=== PATIENT | male | born 2000 | race African-American/Black ===

== ENCOUNTER 2021-05-17 11:03 | Emergency (ER) | payer OTHER, SELFPAY ==
[2021-05-17 11:12] VITALS: BP 127/72; PULSE 67; RESP 12; TEMP 36.9; O2SAT 100
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
== END 2021-05-17 11:36 | disposition home or self-care (01) ==
PROVIDERS: Emergency Provider Nurse Practitioner Family
DX: R05.9 Cough, unspecified (principal)
CPT/HCPCS: 99211; G0463

== ENCOUNTER 2021-09-21 11:19 | Emergency (ER) | payer OTHER, SELFPAY ==
--- NOTE | 2021-09-21 11:31 | ED.GENADULT ---
HPI - General Adult General Chief complaint: Unspecified Stated complaint: wants work note Time Seen by Provider: 09/21/21 11:31 Source: patient Mode of arrival: ambulatory Limitations: no limitations History of Present Illness HPI narrative: Mr. Hearn is a 20-year-old male patient presenting to the clinic today requesting a work note to go back to work today He reports he was sick about 2 weeks ago with fatigue and nausea over 4 September weekend. He denies any concerns at this time. Related Data Home Medications Medication Instructions Recorded Confirmed No Home Medications 05/17/21 05/17/21 Allergies Allergy/AdvReac Type Severity Reaction Status Date / Time No Known Allergies Allergy Verified 05/17/21 11:13 Review of Systems Review of Systems: Pertinent positives per HPI. Patient denies any fever, chills, rash, headache, visual changes, dizziness, cough, runny nose, sore throat, shortness of breath, chest pain, palpitations, nausea, vomiting, diarrhea, constipation, abdominal pain, or any urinary issues. PMFSH Comments At the time of my signature, I reviewed and agree with the nursing past medical, surgical, social, and family history. There is no relevant family history pertinent to the patient complaint. Exam Narrative: General: Well-developed, well nourished, in no apparent distress Head: Normocephalic, atraumatic Eyes: Pupils equally round and reactive to light bilaterally, EOM intact, sclera and conjunctive clear, no discharge, lids normal Ears: TMs intact and clear, ear canals ceruminous, no drainage, grossly hearing normal. Nose: Nares patent, no discharge, no inflammation, no sinus tenderness. Mouth: Oropharynx without lesions or masses, good dentition, MMM. Neck: Supple, trachea midline, no enlargement of anterior or posterior cervical nodes, no thyroid masses or goiter palpable. Cardio: Regular rate and rhythm, s1 and s2 normal, no murmur appreciated. Resp: Clear to auscultation bilaterally anteriorly and posteriorly, no rhonchi, rales, wheezing or rubs Course Course Emergency Course: Portions of this record may have been created with voice recognition software. Level of Care: Express Care Visit Vital Signs Vital signs: Vital signs reviewed Medical Decision Making MDM Narrative Medical decision making narrative: At the time of visit patient is resting comfortably on the exam table. Patient reports that his fatigue and nausea have resolved and he would like to get a work note to go back to work today. Work note was given and patient was given supportive measures and discharge. Differential Diagnosis Differential Diagnosis: Viral syndrome, nausea, fatigue Discharge Plan Discharge Clinical Impression: Fatigue, Nausea Patient Disposition: Home, Self-Care Condition: Stable Instructions: Antibiotic Form, Acute Nausea and Vomiting (ED), Fatigue (ED) Additional Instructions: Fatigue and nausea has resolved per patient. Work note given to return to work today. Increase fluids and stay well-hydrated Tylenol/Motrin as needed for any pain or fever. Get at least 7 to 8 hours of sleep per night Follow-up with your PCP as needed Prescriptions: No Action No Home Medications Follow-up/Referrals: UNKNOWN,DOCTOR [Primary Care Provider] - Stand Alone Forms: Work/School Release IP Time of Disposition: 11:37 Quality NIHSS Nursing Documentation ED NIHSS nursing documentation: reviewed/agree
[2021-09-21 11:32] VITALS: BP 117/73; PULSE 55; RESP 16; TEMP 37.2
== END 2021-09-21 11:42 | disposition home or self-care (01) ==
PROVIDERS: Emergency Provider Nurse Practitioner Family
DX: R53.83 Other fatigue (principal); R11.0 Nausea
CPT/HCPCS: 99211; G0463

== ENCOUNTER 2022-01-18 13:16 | Emergency (ER) | payer OTHER, SELFPAY ==
--- NOTE | 2022-01-18 13:17 | ED.URI ---
HPI - URI/Sore Throat General Stated Complaint: sore throat, trouble breathing,will need work note Time Seen by Provider: 01/18/22 13:17 Source: patient Mode of arrival: ambulatory Limitations: no limitations History of Present Illness HPI Narrative: Antonio is a 21-year-old male patient presenting to the clinic today with complaints of sore throat and nasal congestion that began this morning. He denies any fever or chills. He denies any known sick contacts. States that he is now feeling better but is needing a work note to return to work tomorrow MD elicited complaint: sore throat and nasal congestion Related Data Home Medications Medication Instructions Recorded Confirmed No Home Medications 05/17/21 05/17/21 Allergies Allergy/AdvReac Type Severity Reaction Status Date / Time No Known Allergies Allergy Verified 01/18/22 13:25 Review of Systems Review of Systems: Pertinent positives per HPI. Patient denies any fever, chills, rash, headache, visual changes, dizziness, shortness of breath, chest pain, palpitations, nausea, vomiting, diarrhea, constipation, abdominal pain, or any urinary issues. PMFSH Comments At the time of my signature, I reviewed and agree with the nursing past medical, surgical, social, and family history. There is no relevant family history pertinent to the patient complaint. Exam Narrative: General: Well-developed, well nourished, in no apparent distress Head: Normocephalic, atraumatic Eyes: Pupils equally round and reactive to light bilaterally, EOM intact, sclera and conjunctive clear, no discharge, lids normal Ears: TMs intact and clear, ear canals clear, no drainage, grossly hearing normal. Nose: Nares patent, clear nasal discharge, mild inflammation, no sinus tenderness. Mouth: Oral pharynx without lesions or masses, good dentition, MMM. Postnasal drip Neck: Supple, trachea midline, no enlargement of anterior or posterior cervical nodes, no thyroid masses or goiter palpable. Cardio: Regular rate and rhythm, s1 and s2 normal, no murmur appreciated. Resp: Clear to auscultation bilaterally, no rhonchi, rales, wheezing or rubs Course Course Emergency Course: Portions of this record may have been created with voice recognition software. Level of Care: Express Care Visit Vital Signs Vital signs: Vital signs reviewed MDM - URI/Sore Throat MDM Narrative Medical decision making narrative: At the time of the patient is resting comfortably on the exam table. I suspect patient has an upper respiratory infection/pharyngitis. Supportive measures were discussed with the patient he voiced understanding of discharge instructions and agrees to treatment plan. Differential Diagnosis Differential diagnosis: Likely sinusitis, viral infection, influenza and pharyngitis Discharge Plan Discharge Clinical Impression: Upper respiratory infection Qualifiers: URI type: unspecified viral URI Qualified Code(s): J06.9 - Acute upper respiratory infection, unspecified Pharyngitis Qualifiers: Pharyngitis/tonsillitis etiology: unspecified etiology Qualified Code(s): J02.9 - Acute pharyngitis, unspecified Patient Disposition: Home, Self-Care Condition: Stable Instructions: Antibiotic Form, Pharyngitis (ED), Upper Respiratory Infection (ED) Additional Instructions: Increase fluids and stay well hydrated Tylenol/motrin for pain/fever Flonase and OTC antihistamines as directed Vicks vapor rub to open sinuses Sinus rinses for congestion Cepacol spray, cough drops, throat lozenges, warm tea with honey/lemon, gargle salt water to soothe throat BRAT diet for diarrhea Clear liquids x 24 hours then advance as tolerated for nausea/vomiting Go to the ED if you develop a worsening in your condition- high fever not controlled by Tylenol or Motrin, dehydration, weakness, lethargy, shortness of breath, or chest pain. Follow up with your PCP in 3-5 days if symptoms persist. Pr
[2022-01-18 13:25] VITALS: BP 132/88; PULSE 69; RESP 16; TEMP 37; O2SAT 100
== END 2022-01-18 13:35 | disposition home or self-care (01) ==
PROVIDERS: Emergency Provider Nurse Practitioner Family
DX: J06.9 Acute upper respiratory infection, unspecified (principal); J02.9 Acute pharyngitis, unspecified
CPT/HCPCS: 99211; G0463